=== PATIENT | female | born 1955 | race Caucasian/White ===

== ENCOUNTER → 2016-06-02 | Outpatient (CLI) | payer OTHER ==
[~2016-06-02] VITALS: Ht 167.6 cm; Wt 128.4 kg
[~2016-06-02] MED LIST: AMMO12CR4 EX; ASPI1TAB PO; GLIM4TAB PO; GLUC1CAP10 PO; JANU100T PO; LIDOCAINE 2% INJ 100 MG/5 ML SDV (FOR ANES.) As Ordered ONE; METF1000 PO; NS 1,000 ML IV SCH; PROPOFOL 500 MG/50 ML VIAL As Ordered ONE; VALS320T PO; VITA100037 PO
--- NOTE | 2016-06-02 09:58 | ROOR ---
Patient Name: Vivienne Boone Procedure Date: 06/02/2016 9:21 AM Date of : 1955 Age: 61 Room: [facility] Gender: Female Note Status: Finalized Procedure: Colonoscopy to Cecum + Cold Snare Polypectomy + Hemoclips Indications: Screening for colorectal malignant neoplasm, Last colonoscopy: 2005 Providers: Missael Hunter MD Referring MD: DESIREE WHITFIELD JR, MD Requesting Provider: Medicines: Monitored Anesthesia Care Complications: No immediate complications. Procedure: Pre-Anesthesia Assessment: - The heart rate, respiratory rate, oxygen saturations, blood pressure, adequacy of pulmonary ventilation, and response to care were monitored throughout the procedure. The Colonoscope was introduced through the anus and advanced to the cecum, identified by appendiceal orifice and ileocecal valve. The colonoscopy was performed without difficulty. The patient tolerated the procedure well. The quality of the bowel preparation was excellent. Findings: The perianal and digital rectal examinations were normal. Non-bleeding internal hemorrhoids were found during retroflexion. The hemorrhoids were small and Grade I (internal hemorrhoids that do not prolapse). Scattered small-mouthed diverticula were found in the recto-sigmoid colon, sigmoid colon and descending colon. A medium polyp was found at 40 cm proximal to the anus. The polyp was carpet-like. The polyp was removed with a cold snare. Resection and retrieval were complete. To prevent bleeding after the polypectomy, four hemostatic clips were successfully placed (MR conditional). There was no bleeding at the end of the procedure. The exam was otherwise without abnormality on direct and retroflexion views. Impression: - Non-bleeding internal hemorrhoids. - Diverticulosis in the recto-sigmoid colon, in the sigmoid colon and in the descending colon. - One medium polyp at 40 cm proximal to the anus, removed with a cold snare. Resected and retrieved. Clips (MR conditional) were placed. - The examination was otherwise normal on direct and retroflexion views. - The exam was otherwise normal to the cecum. Recommendation: - Patient has a contact number available for emergencies. The signs and symptoms of potential delayed complications were discussed with the patient. Return to normal activities tomorrow. Written discharge instructions were provided to the patient. - High fiber diet. - Discharge patient to home. - Continue present medications. - Await pathology results. - Telephone GI clinic for pathology results in 1 week. - Repeat colonoscopy for surveillance based on pathology results. - Check Portal Online for Path Results.([email or web address]) - The findings and recommendations were discussed with the patient's family. Missael Hunter MD Missael uHnter MD 06/02/2016 9:57:46 AM This report has been signed electronically. Number of Addenda: 0 Note Initiated On: 06/02/2016 9:21 AM Estimated Blood Loss: Estimated blood loss: none.
[2016-06-02 10:15] VITALS: BP 127/71
== END ==
LOC: M OPP 08:49
PROVIDERS: ATTEND Internal Medicine Gastroenterology
DX: Z12.11 Encounter for screening for malignant neoplasm of colon (principal); D12.6 Benign neoplasm of colon, unspecified; K64.0 First degree hemorrhoids; K57.30 Diverticulosis of large intestine without perforation or abscess without bleeding; I10 Essential (primary) hypertension; E78.00 Pure hypercholesterolemia, unspecified; E11.9 Type 2 diabetes mellitus without complications; E66.9 Obesity, unspecified; Z87.891 Personal history of nicotine dependence; Z79.84 Long term (current) use of oral hypoglycemic drugs; Z79.899 Other long term (current) drug therapy; Z88.8 Allergy status to other drugs, medicaments and biological substances

== ENCOUNTER → 2016-10-14 | Outpatient (REF) | payer OTHER ==
[~2016-10-14] MED LIST changes: -LIDOCAINE 2% INJ 100 MG/5 ML SDV (FOR ANES.) As Ordered ONE; -METF1000 PO; +METF10004 PO; -NS 1,000 ML IV SCH; -PROPOFOL 500 MG/50 ML VIAL As Ordered ONE; -VITA100037 PO; +VITA100067 PO
[2016-10-14 16:08] LABS: ALBUMIN 3.7 GM/DL (3.2-5.2); ALBUMIN/GLOBULIN RATIO 0.97 (1.00-1.93); ALKALINE PHOSPHATASE 45 U/L (45-117); ALT/SGPT 27 U/L (12-78); ANION GAP 7 MEQ/L (8-16); AST/SGOT 18 U/L (15-37); BILIRUBIN,TOTAL 0.6 MG/DL (0.2-1.0); BLOOD UREA NITROGEN 13 MG/DL (7-18); CALCIUM LEVEL 9.1 MG/DL (8.8-10.2); CARBON DIOXIDE LEVEL 30 MEQ/L (21-32); CHLORIDE LEVEL 102 MEQ/L (98-107); CREATININE FOR GFR 0.81 MG/DL (0.55-1.02); GLOMERULAR FILTRATION RATE > 60.0 (>45); GLUCOSE, FASTING 78 MG/DL (80-110); POTASSIUM SERUM 3.7 MEQ/L (3.5-5.1); SODIUM LEVEL 139 MEQ/L (136-145); TOTAL PROTEIN 7.5 GM/DL (6.4-8.2)
== END ==
LOC: M LABDRAW1 14:26
PROVIDERS: ATTEND Urology
DX: N20.0 Calculus of kidney (principal); N13.39 Other hydronephrosis

== ENCOUNTER 2019-06-09 23:32 | Emergency (ER) | payer MEDICARE, OTHER ==
[~2019-06-09] VITALS: Ht 167.6 cm; Wt 132.6 kg
[~2019-06-09 23:32] MED LIST changes: -AMMO12CR4 EX; +AMMO12CR7 EX; -ASPI1TAB PO; +ASPI81TA26 PO; -GLIM4TAB PO; +GLIM4TAB5 PO; -VALS320T PO; +VALS320T2 PO
[2019-06-10] MEDS ORDERED: CHOL4PW PO (00:17)
[2019-06-10] MEDS ORDERED: LOSA100T8 PO (00:17)
[2019-06-10 00:26] LABS: BASO # 0.1 10^3/uL (0.0-0.2); BASO % 0.5 % (0.0-1.0); EOS # 0.2 10^3/uL (0.0-0.5); EOS % 1.7 % (0.0-3.0); HEMATOCRIT 40.2 % (36.0-47.0); HEMOGLOBIN 13.5 g/dl (12.0-15.5); LYMPH # 3.1 10^3/uL (1.5-5.0); MEAN CORPUSCULAR HEMOGLOBIN 32.8 pg (27.0-33.0); MEAN CORPUSCULAR HGB CONC 33.6 g/dl (32.0-36.5); MEAN CORPUSCULAR VOLUME 97.6 fl (80.0-96.0); MONO # 0.8 10^3/uL (0.0-0.8); MONO % 8.5 % (0.0-5.0); NEUTROPHILS # 5.3 10^3/uL (1.5-8.5); PLATELET COUNT, AUTOMATED 243 10^3/uL (150-450); RED BLOOD COUNT 4.12 10^6/uL (4.00-5.40); WHITE BLOOD COUNT 9.5 10^3/uL (4.0-10.0)
[2019-06-10 00:46] LABS: ERYTHROCYTE SEDIMENTATION RATE 43 mm/hr (0-30)
--- NOTE | 2019-06-10 00:59 | REPVR ---
PROCEDURE INFORMATION: Exam: US Duplex Right Lower Extremity Veins, Limited Exam date and time: 06/10/2019 12:54 AM Age: 64 years old Clinical indication: Pain; Leg, upper; Right; Additional info: 2 hard lumps upper thigh, fam HX blood clots TECHNIQUE: Imaging protocol: Real-time Duplex ultrasound of the Right Lower Extremity with 2-D chowdary scale, color Doppler flow and spectral waveform analysis with image documentation. Limited exam was focused on the right lower extremity veins. COMPARISON: No relevant prior studies available. FINDINGS: Right deep veins: Unremarkable. The common femoral, femoral, proximal profunda femoral and popliteal veins are patent without thrombus. Normal Doppler waveforms. Normal compressibility and/or augmentation response. Right superficial veins: There is superficial thrombosis involving the greater saphenous vein extending into adjacent collateral veins. Soft tissues: Unremarkable. IMPRESSION: 1. Positive for superficial thrombosis involving the greater saphenous vein extending into adjacent collateral veins. 2. No evidence of deep venous thrombosis. Electronically signed by: Kevon Palafox On 06/10/2019 00:59:17 AM
[2019-06-10 01:33] VITALS: BP 135/64
== END 2019-06-10 02:03 | disposition home or self-care (01) ==
LOC: M ED 23:32
DX: I82.811 Embolism and thrombosis of superficial veins of right lower extremity (principal); E11.9 Type 2 diabetes mellitus without complications; I10 Essential (primary) hypertension; Z87.891 Personal history of nicotine dependence; Z79.899 Other long term (current) drug therapy; Z88.8 Allergy status to other drugs, medicaments and biological substances

== ENCOUNTER 2019-06-30 12:37 | Emergency (ER) | payer MEDICARE, OTHER ==
[~2019-06-30] VITALS: Ht 167.6 cm; Wt 131.0 kg
[~2019-06-30 12:37] MED LIST changes: +CHOL4PW PO; +LOSA100T8 PO
[2019-06-30] MEDS ORDERED: ASPIRIN 81 MG CHEW TABLET PO ONE (13:00)
[2019-06-30] MEDS ORDERED: COMBIVENT RESPIMAT 100-20MCG INHALER 4GM INH ONE (13:15)
[2019-06-30 13:26] LABS: BASO % 0.3 % (0.0-1.0); EOS % 0.1 % (0.0-3.0); HEMATOCRIT 39.7 % (36.0-47.0); HEMOGLOBIN 13.2 g/dl (12.0-15.5); LYMPH # 2.4 10^3/uL (1.5-5.0); LYMPH % 17.8 % (24.0-44.0); MEAN CORPUSCULAR HEMOGLOBIN 31.9 pg (27.0-33.0); MEAN CORPUSCULAR HGB CONC 33.2 g/dl (32.0-36.5); MEAN CORPUSCULAR VOLUME 95.9 fl (80.0-96.0); MONO # 1.2 10^3/uL (0.0-0.8); MONO % 8.6 % (0.0-5.0); NEUTROPHILS # 9.9 10^3/uL (1.5-8.5); NEUTROPHILS % 72.6 % (36.0-66.0); PLATELET COUNT, AUTOMATED 267 10^3/uL (150-450); RED BLOOD COUNT 4.14 10^6/uL (4.00-5.40); WHITE BLOOD COUNT 13.7 10^3/uL (4.0-10.0)
[2019-06-30 13:37] LABS: INR 1.01
[2019-06-30 13:40] LABS: D-DIMER QUANT 2288.39 ng/ml (<500)
[2019-06-30 13:41] LABS: ABG BASE EXCESS -3.2 (-2.0-2.0); ABG HCO3 19.5 MEQ/L (22.0-26.0); ABG O2 SATURATION 92.7 % (95.0-99.0); ABG PARTIAL PRESSURE CO2 28.5 mmHg (35.0-45.0); ABG PARTIAL PRESSURE O2 68.1 mmHg (75.0-100.0); ABG STANDARD HCO3 21.7 MEQ/L (22.0-26.0); ABG TOTAL CO2 20.4 MEQ/L (23.0-31.0); ABG pH (ARTERIAL) 7.453 UNITS (7.350-7.450)
[2019-06-30 13:54] LABS: ALBUMIN 3.8 GM/DL (3.2-5.2); BILIRUBIN,DIRECT 0.2 MG/DL (0.0-0.2); BILIRUBIN,TOTAL 0.6 MG/DL (0.2-1.0); CALCIUM LEVEL 9.2 MG/DL (8.8-10.2); CK-MB VALUE MASS 1.6 NG/ML (<3.6); CREATININE FOR GFR 1.09 MG/DL (0.55-1.30); GLOMERULAR FILTRATION RATE 53.5 (>45); MB/CK RELATIVE INDEX 1.98 (< OR =4); POTASSIUM SERUM 4.1 MEQ/L (3.5-5.1); TOTAL PROTEIN 7.8 GM/DL (6.4-8.2); TROPONIN I 0.3 NG/ML (< 0.10)
--- NOTE | 2019-06-30 14:18 | REP ---
CHEST, SINGLE VIEW: Single view of the chest is performed. There is mild cardiomegaly. No acute infiltrate is seen. The mediastinal silhouette appears unremarkable. There are degenerative changes of the spine. IMPRESSION: Mild cardiomegaly. No acute pulmonary disease. Electronically Signed by Preet Bustamante MD 06/30/2019 02:58 P
[2019-06-30] MEDS ORDERED: ISOVUE-370 76% 100ML VIAL As Ordered ONE (15:49)
--- NOTE | 2019-06-30 16:26 | REP ---
CT PULMONARY ANGIOGRAM: With IV contrast. HISTORY: Shortness of breath. COMPARISON STUDIES: Comparison is made with today's portable chest x-ray. CONTRAST DOSE: 75 mL of Isovue [address] TECHNIQUE: Helical scanning is acquired and overlapping 1.5 mm and contiguous 3 mm axial images are reformatted. In addition, maximum intensity projection and multiplanar re-formation images are generated in sagittal and coronal imaging projections. CT PULMONARY ANGIOGRAPHIC FINDINGS: There is good opacification of the pulmonary arterial tree. There is a large saddle pulmonary embolus with linear thrombi extending into bilateral upper and bilateral lower lobe pulmonary arterial branches. There is slight flattening of the interventricular septum. The right atrium and ventricle are slightly prominent question right heart strain. There is no evidence of aortic aneurysm or dissection. No pleural or pericardial effusion is seen. There is a low-density mediastinal lesion along the aortopulmonary window region of the left mediastinum. This measures 2.8 cm in diameter and is most compatible with a pericardial cyst. There is fatty infiltration of the liver. No adrenal lesion is seen. No infiltrate is noted. IMPRESSION: Large saddle pulmonary embolus with thrombi extending in the upper and lower lobe pulmonary arterial tree bilaterally. Fatty infiltration of the liver. 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 Findings were telephoned to the referring provider in the ED at the time of the study. Electronically Signed by Stephen Hilario MD 06/30/2019 04:46 P
[2019-06-30] MEDS ORDERED: HYDR12.55 PO (17:12)
[2019-06-30] MEDS ORDERED: LOSA100T50 PO (17:12)
--- NOTE | 2019-06-30 17:46 | CR.PDOC ---
General Date of Consultation: June 30, 2019 Consultation REASON FOR CONSULTATION/CHIEF COMPLAINT: Who presented to hospital with worsening shortness of breath and chest pain HISTORY OF PRESENT ILLNESS: Patient is a 64-year-old female with a past medical history of [id number] diabetes mellitus type 2, hypertension, chronic diarrhea on cholestyramine and a recent diagnosis of superficial thrombosis involving the greater saphenous vein extending into adjacent collateral veins (without evidence of DVT). Patient reported that on June 08. She had presented to the emergency room with right inner leg pain and was found to have superficial thrombi. Patient was advised to continue with NSAIDs for pain relief and follow-up with her primary care provider, Dr. Reyes. Patient followed up with her primary care provider 2 days later and had a repeat ultrasound completed that again showed superficial vein thrombosis. Patient noted that 2 days ago she began to experience worsening shortness of breath with exertion. Patient thought nothing of it and the subsequent day continued to experience worsening short of breath, which now was associated with chest tightness. Patient of that her chest tightness worsened over the evening and woke her up from sleep at 3 AM. Patient has described the chest pain is 4-5/10, occurring on the left side without any radiation, occurring intermittently. Denies any associated nausea, vomiting, lightheadedness or sweating. Patient son had advised her to come to the emergency room for further evaluation. Patient has no prior history of strokes, heart attacks or clots (other than superficial thrombi on 06/08) Patient denies abdominal pain, constipation, or urinary discomfort. She does report chronic diarrhea for which she takes cholestyramine. Patient has no prior history of bleeding episodes. Denies blood in her stool, but has a slight tinge of blood in her urine several months ago. Upon a lateral to emergency room, patient had a CT angiogram completed of her chest that had revealed evidence of a large saddle pulmonary embolism. ALLERGIES: Please see below. HOME MEDICATIONS: Please see below. PAST MEDICAL HISTORY: NIDDM2 HTN Chronic diarrhea Recent superficial thrombosis involving right greater saphenous vein extending into adjacent collateral veins PAST SURGICAL HISTORY: section 2 Cholecystectomy FAMILY HISTORY: - Mother with history of many blood clots - Sister with history of pancreatic cancer SOCIAL HISTORY: - Denies the use of alcohol, tobacco or illicit drugs - Denies recent travel or sick contacts - Lives with - Occupation; reports she still works at a [employer] REVIEW OF SYSTEMS: [10 point review of systems complete, all negative otherwise stated in HPI] SCREENING: - Colonoscopy completed 05/[address] Hunter with a single hyperplastic polyp resected - Mammogram; reported to have been completed approximately one year ago and was noted to be normal PHYSICAL EXAMINATION: - Vitals: BP 135/63, HR 88, RR 20, Sat 97%NC3L, Temp 99.7F - General: Lying in bed, Appears comfortable, AAOx3 - HEENT: NC, AT, PERRLA, EOMI - CVS: RRR, +S1S2 - Lungs: Fair air entry bilaterally, No appreciable wheezing / rales / rhonchi - Abdomen: Soft, Non-distended, Non-tender - Extremities: No lower extremity pitting edema, No calf tenderness - Neuro: No focal motor or sensory deficit - Skin: No visible rashes LABORATORY DATA: Please see below. ASSESSMENT/PLAN: Acute hypoxic respiratory failure - likely 2/2 Large saddle PE / Sub-massive PE / Intermediate risk PE - Presented to the hospital with worsening shortness of breath associated with chest pain - Recent history of 06/08 of superficial thrombosis involving right greater saphenous vein extending into adjacent collateral veins- Currently patient is hemodynamically stable - Patient is saturating well on 3 L of supplemental oxygen via nasal cannula; - Elevated D-dimers - Laboratory data show evidence of elevated troponin and BNP; without a prior cardiac history - CTA chest 06/29: Large saddle pulmonary embolus with thrombi extending in the upper and lower lobe pulmonary arterial tree bilaterally. Fatty infiltration of the liver. 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 - Discussed case with Security Rep and Interventional radiologist; at this point would recommend transfer to facility where catheter directed TPA can be facilitated / evaluated given evidence of heart strain - Case was discussed with ER provider Elevated troponin / BNP - possibly 2/2 sub-massive / demand ischemia (Type II NSTEMI) - Currently patient still reports some chest discomfort occurring on the left side of her chest - Discussion of pain appears atypical - Troponin of 0.30 and BNP of 1852 - EKG with some evidence of T-wave inversions in lead I, II and AvL - Will require continued telemetry monitoring - See above Leukocytosis - likely 2/2 reactive etiology, less likely 2/2 infectious etiology - Low-grade temperature of the 100.2 was noted on admission - Currently patient denies any symptoms of productive cough or discomfort with urination - Imaging does not reveal any evidence of pneumonia - UA without any significant signs of infection - Will hold off on antibiotic therapy Hyponatremia - Mild NIDDM2 - Currently glucose levels appear appropriate - Will likely start ISS while inpatient HTN - BP well controlled at this time - As an outpatient she takes Losartan / HCTZ Chronic diarrhea - c/w outpatient cholestyramine DVT prophylaxis - Will likely require full anticoagulation Vital Signs/I&O Vital Signs Date Time Temp Pulse Resp B/P (MAP) Pulse Ox O2 Delivery O2 Flow Rate FiO2 06/30/19 16:15 88 24 97 Nasal Cannula 3.0 06/30/19 15:45 143/63 (89) 06/30/19 12:50 99.7 Laboratory Data Labs 24H Laboratory Tests 2 06/30/19 13:10: Immature Granulocyte % (Auto) 0.6, Neutrophils (%) (Auto) 72.6H, Lymphocytes (%) (Auto) 17.8L, Monocytes (%) (Auto) 8.6H, Eosinophils (%) (Auto) 0.1, Basophils (%) (Auto) 0.3, Neutrophils # (Auto) 9.9H, Lymphocytes # (Auto) 2.4, Monocytes # (Auto) 1.2H, Eosinophils # (Auto) 0.0, Basophils # (Auto) 0.0, Nucleated Red Blood Cells % (auto) 0.0, Prothrombin Time 13.0, Prothromb Time International Ratio 1.01, D-Dimer, Quantitative 2288.39H, Anion Gap 9, Glomerular Filtration Rate 53.5, Calcium Level 9.2, Total Bilirubin 0.6, Direct Bilirubin 0.2, Aspartate Amino Transf (AST/SGOT) 23, Alanine Aminotransferase (ALT/SGPT) 37, Alkaline Phosphatase 50, Total Creatine Kinase 81, Creatine Kinase MB 1.6, Creatine Kinase MB Relative Index 1.98, Troponin I 0.30H, DK-Qii-X-Type Natriuretic Peptide 1852H, Total Protein 7.8, Albumin 3.8, Albumin/Globulin Ratio 1.0L, Lipase 77 06/30/19 13:21: Blood Gas Bicarbonate Standard 21.7L, Arterial Blood pH 7.453H, Arterial Blood Partial Pressure CO2 28.5L, Arterial Blood Partial Pressure O2 68.1L, Arterial Blood Total CO2 20.4L, Arterial Blood HCO3 19.5L, Arterial Blood Base Excess - 3.2L, Arterial Blood Oxygen Saturation 92.7L 06/30/19 16:07: Urine Color YELLOW, Urine Appearance HAZY, Urine pH 5.0, Urine Specific [place] 1.029, Urine Protein NEGATIVE, Urine Glucose (UA) NEGATIVE, Urine Ketones TRACEH, Urine Blood NEGATIVE, Urine Nitrite NEGATIVE, Urine Bilirubin NEGATIVE, Urine Urobilinogen 0.2, Urine Leukocyte Esterase 2+H, Urine WBC (Auto) 7H, Urine RBC (Auto) 2, Urine Hyaline Casts (Auto) 1, Urine Bacteria (Auto) NEGATIVE, Urine Squamous Epithelial Cells 3, Urine Mucus (Auto) SMALL, Urine Sperm (Auto) 06/30/19 17:30: CBC/BMP Laboratory Tests 06/30/19 13:10 Microbiology Microbiology 06/30/19 Urine Culture, Received Pending Allergies Coded Allergies: ramipril (Verified Allergy, Intermediate, facial swelling, 06/30/19) Mddiipy-Nrt-Uba Reductase Inhibitor (Verified Adverse Reaction, Intermediate, muscle weakness, 06/30/19) Home Medications Scheduled Aspirin (Aspirin EC) 81 Mg Tab, 81 MG PO DAILY, (Reported) Cholestyramine (Cholestyramine Packet) 4 Gm Powd.pack, 4 GM PO ASDIRECTED, (Reported) PT TAKES USUALLY FOR 3 DAYS, THEN SKIPS A DAY, DOES NOT TAKE IT IF SHE ARNETT SN'T LEAVE THE HOUSE Glimepiride (Glimepiride) 4 Mg Tab, 4 MG PO DAILY, (Reported) Gluc Manriquez/Chondro Manriquez A/Vit C/Mn (Glucosamine-Chondroitin Cap) 1 Cap Cap, 1 CAP PO BID, (Reported) Hydrochlorothiazide (Hydrochlorothiazide) 12.5 Mg Tablet, 12.5 MG PO QHS, (Reported) Losartan Potassium (Losartan Potassium) 100 Mg Tablet, 100 MG PO QHS, (Reported) Metformin HCl (Metformin HCl) 1,000 Mg Tab, 1,000 MG PO BID, (Reported) Sitagliptin Phosphate (Januvia) Unknown Strength Tab, 1 TAB PO DAILY, (Reported) VIOLETA LINTON MD June 30, 2019 17:46
[2019-06-30] MEDS ORDERED: HEPARIN DRIP 25,000 UNITS in IV 1 EA IV SCH (18:33)
[2019-06-30] MEDS ORDERED: HEPARIN 25,000 UNITS/250 ML D5W BAG (100 UNITS/ML) (J1644 PER 1000UNITS) As Ordered ONE (18:39)
[2019-06-30] MEDS ORDERED: HEPARIN SOD (PORCINE) 5000UNITS/ML VIAL (J1644 PER 1000UNITS) IV ONE (18:45)
[2019-06-30 19:01] LABS: PARTIAL THROMBOPLASTIN TIME 26.9 SECONDS (25.0-38.4)
[2019-06-30 19:04] VITALS: BP 133/70
--- NOTE | 2019-06-30 21:31 | ECGEPIP ---
[facility] - ED Test Date: 2019-06-30 Pat Name: RUSSELL SANCHEZ Department: Room: - Gender: Female Lurer: heidi : 1955 Requested By: Saul Jasso Order Number: [id number] Reading MD: Saul Carney Measurements Intervals Mongo Rate: 100 P: 58 IN: 149 QRS: -19 QRSD: 96 T: 36 QT: 348 QTc: 450 Interpretive Statements SINUS TACHYCARDIA POOR R WAVE PROGRESSION MODERATE VOLTAGE CRITERIA FOR LVH, CONSIDER NORMAL VARIANT MODERATE T-WAVE ABNORMALITY, CONSIDER LATERAL ISCHEMIA NO PRIORS FOR COMPARISON Electronically Signed on 06-30-2019 21:31:19 EDT by Saul Carney
== END 2019-06-30 19:07 | disposition other institution (70) ==
LOC: M ED 12:37
DX: I26.99 Other pulmonary embolism without acute cor pulmonale (principal); R07.9 Chest pain, unspecified; I10 Essential (primary) hypertension; E11.9 Type 2 diabetes mellitus without complications; Z88.8 Allergy status to other drugs, medicaments and biological substances; R50.9 Fever, unspecified
CPT/HCPCS: 71045; 71275; 80048; 80076; 81001; 82550; 82553; 82803; 83690; 83880; 84484; 85025; 85379; 85610; 85730; 87086; 93005; 93041; 94640; 99285; J1644; Q9967; U0002

== ENCOUNTER → 2020-04-24 | Outpatient (REF) | payer MEDICARE, OTHER ==
[~2020-04-24] MED LIST changes: +HYDR12.55 PO; +LOSA100T50 PO
== END ==
LOC: M LAB REF 16:23
PROVIDERS: ATTEND Internal Medicine
DX: R31.0 Gross hematuria (principal)

== ENCOUNTER → 2020-05-01 | Outpatient (REF) | payer MEDICARE, OTHER | LOC: M LAB REF 12:15 | PROVIDERS: ATTEND Internal Medicine | DX: R31.0 Gross hematuria (principal) ==

== ENCOUNTER → 2020-05-07 | Outpatient (REF) | payer MEDICARE, OTHER | LOC: M LAB REF 11:28 | PROVIDERS: ATTEND Internal Medicine | DX: R31.0 Gross hematuria (principal) ==

== ENCOUNTER 2021-04-16 09:27 | Emergency (ER) | payer MEDICARE, OTHER ==
[~2021-04-16] VITALS: Ht 167.6 cm; Wt 127.3 kg
[~2021-04-16 09:27] MED LIST changes: +LOSA100T45 PO; -LOSA100T50 PO
[2021-04-16 11:40] LABS: BASO % 0.3 % (0.0-1.0); EOS % 0.4 % (0.0-3.0); HEMATOCRIT 37.8 % (36.0-47.0); HEMOGLOBIN 12.2 g/dl (12.0-15.5); LYMPH # 2.2 10^3/uL (1.5-5.0); MEAN CORPUSCULAR HGB CONC 32.3 g/dl (32.0-36.5); MEAN CORPUSCULAR VOLUME 95.9 fl (80.0-96.0); MONO # 0.5 10^3/uL (0.0-0.8); MONO % 7.4 % (2.0-8.0); NEUTROPHILS # 4.1 10^3/uL (1.5-8.5); NEUTROPHILS % 59.6 % (36.0-66.0); PLATELET COUNT, AUTOMATED 242 10^3/uL (150-450); RED BLOOD COUNT 3.94 10^6/uL (4.00-5.40); WHITE BLOOD COUNT 6.8 10^3/uL (4.0-10.0)
[2021-04-16 12:13] LABS: CK-MB VALUE MASS < 1.0 NG/ML (<3.6); CPK CREATINE PHOSPHOKINASE 50 U/L (26-192)
[2021-04-16 12:19] LABS: BLOOD UREA NITROGEN 16 MG/DL (7-18); CARBON DIOXIDE LEVEL 32 MEQ/L (21-32); CHLORIDE LEVEL 103 MEQ/L (98-107); CREATININE FOR GFR 0.73 MG/DL (0.55-1.30); GLOMERULAR FILTRATION RATE > 60.0 (>45); GLUCOSE, FASTING 108 MG/DL (70-100); POTASSIUM SERUM 3.7 MEQ/L (3.5-5.1); SODIUM LEVEL 140 MEQ/L (136-145)
[2021-04-16 13:04] VITALS: BP 157/86
== END 2021-04-16 13:52 | disposition home or self-care (01) ==
LOC: M ED 09:27
DX: I48.91 Unspecified atrial fibrillation (principal); S09.90XA Unspecified injury of head, initial encounter; W00.0XXA Fall on same level due to ice and snow, initial encounter; Y92.018 Other place in single-family (private) house as the place of occurrence of the external cause; Y93.9 Activity, unspecified; Y99.9 Unspecified external cause status; M47.12 Other spondylosis with myelopathy, cervical region; M25.78 Osteophyte, vertebrae; I67.82 Cerebral ischemia; E11.9 Type 2 diabetes mellitus without complications; I10 Essential (primary) hypertension; Z86.711 Personal history of pulmonary embolism; Z79.01 Long term (current) use of anticoagulants; Z79.899 Other long term (current) drug therapy; Z88.8 Allergy status to other drugs, medicaments and biological substances

== ENCOUNTER → 2021-04-18 | Outpatient (REF) | payer MEDICARE, OTHER | LOC: M LAB REF 16:18 | PROVIDERS: ATTEND Internal Medicine | DX: N18.31 Chronic kidney disease, stage 3a (principal) ==

== ENCOUNTER → 2021-09-04 | Outpatient (CLI) | payer MEDICARE, OTHER ==
[2021-09-04 13:36] LABS: BASO % 0.3 % (0.0-1.0); EOS % 0.6 % (0.0-3.0); HEMATOCRIT 40.3 % (36.0-47.0); LYMPH # 2.9 10^3/uL (1.5-5.0); MEAN CORPUSCULAR HEMOGLOBIN 31.7 pg (27.0-33.0); MEAN CORPUSCULAR HGB CONC 32.3 g/dl (32.0-36.5); MEAN CORPUSCULAR VOLUME 98.3 fl (80.0-96.0); MONO # 0.5 10^3/uL (0.0-0.8); NEUTROPHILS # 3.5 10^3/uL (1.5-8.5); PLATELET COUNT, AUTOMATED 254 10^3/uL (150-450); WHITE BLOOD COUNT 6.9 10^3/uL (4.0-10.0)
[2021-09-04 13:50] LABS: ALBUMIN 3.8 GM/DL (3.2-5.2); PERCENT SATURATION 22.9 % (13.2-45.0)
[2021-09-04 14:11] LABS: HEMOGLOBIN A1c 6.9 %
== END ==
LOC: M PLALAB 10:16
PROVIDERS: ATTEND Orthopaedic Surgery
DX: Z01.818 Encounter for other preprocedural examination (principal); E11.9 Type 2 diabetes mellitus without complications; E64.9 Sequelae of unspecified nutritional deficiency

== ENCOUNTER → 2021-09-20 | Outpatient (CLI) | payer MEDICARE, OTHER | LOC: M WHC 09:57 | PROVIDERS: ATTEND Internal Medicine | DX: Z12.31 Encounter for screening mammogram for malignant neoplasm of breast (principal); M81.0 Age-related osteoporosis without current pathological fracture ==

== ENCOUNTER → 2022-02-05 | Outpatient (REF) | payer MEDICARE, OTHER ==
[2022-02-05 17:17] LABS: PERCENT SATURATION 17.3 % (13.2-45.0)
[2022-02-05 17:19] LABS: FERRITIN 50.1 NG/ML (7.3-270.7)
== END ==
LOC: M LAB REF 16:21
PROVIDERS: ATTEND Internal Medicine
DX: D64.9 Anemia, unspecified (principal); R60.9 Edema, unspecified

== ENCOUNTER → 2022-05-14 | Outpatient (CLI) | payer MEDICARE, OTHER ==
[2022-05-14 19:28] LABS: BLOOD UREA NITROGEN 18 MG/DL (9-23); CALCIUM LEVEL 9.2 MG/DL (8.3-10.6); CARBON DIOXIDE LEVEL 29 MMOL/L (20-31); CHLORIDE LEVEL 103 MMOL/L (98-107); CREATININE FOR GFR 0.76 MG/DL (0.55-1.30); GLOMERULAR FILTRATION RATE > 60.0 (>45); GLUCOSE, FASTING 140 MG/DL (74-106); POTASSIUM SERUM 4.2 MMOL/L (3.5-5.1); SODIUM LEVEL 139 MMOL/L (136-145)
== END ==
LOC: M PLALAB 15:08
PROVIDERS: ATTEND Urology
DX: R31.0 Gross hematuria (principal)

== ENCOUNTER → 2022-07-18 | Outpatient (CLI) | payer MEDICARE, OTHER ==
[~2022-07-18] MED LIST changes: -LOSA100T45 PO; +LOSA100T46 PO
== END ==
LOC: M RAD 11:06
PROVIDERS: ATTEND Internal Medicine
DX: R42 Dizziness and giddiness (principal)

== ENCOUNTER → 2023-01-06 | Outpatient (REF) | payer MEDICARE, OTHER ==
[2023-01-07 13:31] LABS: FOLATE 8.2 NG/ML (>5.4)
== END ==
LOC: M LAB REF 11:51
PROVIDERS: ATTEND Internal Medicine
DX: G60.9 Hereditary and idiopathic neuropathy, unspecified (principal)

== ENCOUNTER → 2023-05-26 | Outpatient (CLI) | payer MEDICARE, OTHER ==
[2023-05-26 17:13] LABS: BASO % 0.6 % (0.0-1.0); EOS # 0.1 10^3/uL (0.0-0.5); EOS % 1.9 % (0.0-3.0); HEMATOCRIT 40.7 % (36.0-47.0); HEMOGLOBIN 13.2 g/dl (12.0-15.5); LYMPH # 2.1 10^3/uL (1.5-5.0); MEAN CORPUSCULAR HGB CONC 32.4 g/dl (32.0-36.5); MEAN CORPUSCULAR VOLUME 101.8 fl (80.0-96.0); MONO # 0.6 10^3/uL (0.0-0.8); MONO % 10.4 % (2.0-8.0); NEUTROPHILS # 2.6 10^3/uL (1.5-8.5); NEUTROPHILS % 47.9 % (36.0-66.0); PLATELET COUNT, AUTOMATED 259 10^3/uL (150-450); WHITE BLOOD COUNT 5.4 10^3/uL (4.0-10.0)
[2023-05-26 17:38] LABS: ALBUMIN 3.5 G/DL (3.2-5.2)
[2023-05-26 17:43] LABS: HEMOGLOBIN A1c 6.2 % (4.0-6.0)
[2023-05-26 17:47] LABS: FERRITIN 56.5 NG/ML (7.3-270.7)
== END ==
LOC: M PLALAB 11:16
PROVIDERS: ATTEND Orthopaedic Surgery
DX: Z01.818 Encounter for other preprocedural examination (principal); M25.562 Pain in left knee; M17.12 Unilateral primary osteoarthritis, left knee; Z79.899 Other long term (current) drug therapy

== ENCOUNTER → 2023-08-26 | Outpatient (REF) | payer MEDICARE, OTHER ==
[2023-08-26 16:44] LABS: PERCENT SATURATION 15.8 % (13.2-45.0)
[2023-08-26 17:06] LABS: INR 1.13; PARTIAL THROMBOPLASTIN TIME 27.9 SECONDS (24.8-34.2); PROTHROMBIN TIME 14.1 SECONDS (12.5-14.5)
== END ==
LOC: M LAB REF 16:21
PROVIDERS: ATTEND Internal Medicine
DX: Z01.818 Encounter for other preprocedural examination (principal); M17.12 Unilateral primary osteoarthritis, left knee; Z79.01 Long term (current) use of anticoagulants; D50.9 Iron deficiency anemia, unspecified

== ENCOUNTER → 2023-12-30 | Outpatient (CLI) | payer MEDICARE, OTHER | LOC: M WUC 15:24 | PROVIDERS: ATTEND Internal Medicine | DX: M25.522 Pain in left elbow (principal) ==

== ENCOUNTER → 2024-04-06 | Outpatient (REF) | payer MEDICARE, OTHER | LOC: M SFHCDERM 13:14 | PROVIDERS: ATTEND Nurse Practitioner Family | DX: L57.0 Actinic keratosis (principal) ==

== ENCOUNTER → 2024-09-28 | Outpatient (REF) | payer MEDICARE, OTHER ==
[~2024-09-28] MED LIST changes: +AMMO12CR4 EX; -AMMO12CR7 EX
== END ==
LOC: M LAB REF 14:27
PROVIDERS: ATTEND Internal Medicine
DX: R31.9 Hematuria, unspecified (principal)

== ENCOUNTER → 2024-10-19 | Outpatient (CLI) | payer MEDICARE, OTHER ==
[2024-10-19 14:37] LABS: BASO # 0.0 10^3/uL (0.0-0.2); BASO % 0.8 % (0.0-1.0); EOS # 0.1 10^3/uL (0.0-0.5); EOS % 1.5 % (0.0-3.0); LYMPH # 1.5 10^3/uL (1.5-5.0); LYMPH % 29.3 % (24.0-44.0); MONO # 0.5 10^3/uL (0.0-0.8); MONO % 9.2 % (2.0-8.0); NEUTROPHILS # 3.1 10^3/uL (1.5-8.5); NEUTROPHILS % 59.0 % (36.0-66.0); PLATELET COUNT, AUTOMATED 234 10^3/uL (150-450)
[2024-10-19 14:45] LABS: ERYTHROCYTE SEDIMENTATION RATE 29 mm/hr (0-30)
== END ==
LOC: M PLALAB 11:18
PROVIDERS: ATTEND Physician Assistant
DX: M25.562 Pain in left knee (principal); M25.561 Pain in right knee